=== PATIENT | female | born 1935 | race Caucasian/White ===

== ENCOUNTER → 2017-01-13 | Outpatient (CLI) | payer OTHER ==
[~2017-01-13] VITALS: Ht 154.9 cm; Wt 84.6 kg
[2017-01-13 15:22] VITALS: BP 115/65; PULSE 80; Ht 154.9 cm; Wt 84.6 kg
== END | disposition home or self-care (01) ==
LOC: C.NEUR 14:20
PROVIDERS: ATTEND Physician Assistant
DX: G47.30 Sleep apnea, unspecified (principal)

== ENCOUNTER → 2017-04-11 | Outpatient (CLI) | payer OTHER ==
[~2017-04-11] VITALS: Ht 154.9 cm; Wt 83.7 kg
[2017-04-11 15:20] VITALS: BP 113/64; PULSE 81; Ht 154.9 cm; Wt 83.7 kg
== END | disposition home or self-care (01) ==
LOC: C.NEUR 12:36
PROVIDERS: ATTEND Physician Assistant
DX: G47.30 Sleep apnea, unspecified (principal)

== ENCOUNTER → 2017-12-18 | Outpatient (CLI) | payer OTHER ==
[~2017-12-18] VITALS: Ht 154.9 cm; Wt 80.9 kg
[2017-12-18 14:50] VITALS: BP 115/65; PULSE 85; Ht 154.9 cm; Wt 80.9 kg
== END | disposition home or self-care (01) ==
LOC: C.NEUR 14:17
PROVIDERS: ATTEND Physician Assistant
DX: G47.30 Sleep apnea, unspecified (principal)